=== PATIENT | male | born 2000 | race African-American/Black ===

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

== ENCOUNTER 2021-06-06 20:43 | Emergency (ER) | payer MEDICAID ==
[~2021-06-06] VITALS: Ht 200.7 cm; Wt 78.0 kg
[~2021-06-06 20:43] MED LIST changes: +KEFLEX500 M1 PO; +METRONIDAZOL500 MG PO
[2021-06-06 23:19] VITALS: BP 135/88
== END 2021-06-06 23:18 | disposition home or self-care (01) ==
LOC: ED 20:43
DX: U07.1 COVID-19 (principal); Z86.16 Personal history of COVID-19

== ENCOUNTER 2023-12-18 14:50 | Emergency (ER) | payer SELFPAY ==
[~2023-12-18] VITALS: Ht 200.7 cm; Wt 83.9 kg
[2023-12-18] MEDS ORDERED: MELOXICAM15 MG PO (16:22)
[2023-12-18] MEDS ORDERED: METHOCARBAMOL500 MG PO (16:23)
[2023-12-18 16:28] VITALS: BP 137/93
== END 2023-12-18 16:35 | disposition home or self-care (01) | DRG 556 ==
LOC: ED 14:50
DX: M25.551 Pain in right hip (principal); Z86.16 Personal history of COVID-19; Z87.81 Personal history of (healed) traumatic fracture